=== PATIENT | male | born 1995 | race Caucasian/White ===

== ENCOUNTER 2017-04-12 08:28 | Emergency (ER) | payer OTHER ==
[~2017-04-12] VITALS: Ht 172.7 cm; Wt 59.5 kg
[~2017-04-12 08:28] MED LIST: NO MEDICATIONS; VIBRAMYCIN100 MG PO
[2017-04-12 08:50] VITALS: BP 115/73
[2017-04-12] MEDS ORDERED: ERYTHROMYC1 APPLICAT BOTH EYES (09:08)
== END 2017-04-12 09:22 | disposition home or self-care (01) ==
LOC: EME 08:28
DX: H10.33 Unspecified acute conjunctivitis, bilateral (principal); F17.200 Nicotine dependence, unspecified, uncomplicated
CPT/HCPCS: 99281; 99284